=== PATIENT | female | born 1985 | race Caucasian/White ===

== ENCOUNTER → 2024-03-01 13:24 | Outpatient (REF) | payer BC, SELFPAY | LOC: HWWDC 13:24 | PROVIDERS: ATTENDING PHYSICIAN Nurse Practitioner Adult Health; FAMILY PHYSICIAN Internal Medicine | DX: Z12.31 Encounter for screening mammogram for malignant neoplasm of breast (principal); Z80.3 Family history of malignant neoplasm of breast | CPT/HCPCS: 77063; 77067 ==

== ENCOUNTER → 2024-03-15 09:55 | Outpatient (REF) | payer BC, SELFPAY | LOC: WDC 09:55 | PROVIDERS: ATTENDING PHYSICIAN Nurse Practitioner Adult Health; FAMILY PHYSICIAN Internal Medicine | DX: R92.8 Other abnormal and inconclusive findings on diagnostic imaging of breast (principal) | CPT/HCPCS: 76642 ==

== ENCOUNTER → 2024-08-30 14:46 | Outpatient (REF) | payer BC, SELFPAY | LOC: WDC 14:46 | PROVIDERS: ATTENDING PHYSICIAN Nurse Practitioner Adult Health | DX: R92.8 Other abnormal and inconclusive findings on diagnostic imaging of breast (principal) | CPT/HCPCS: 76642 ==

== ENCOUNTER 2025-01-25 00:12 | Emergency (ER) | payer OTHER, SELFPAY ==
[2025-01-25 00:23] VITALS: BP 135/94
[2025-01-25 00:39] VITALS: BMI 24.6
[2025-01-25 01:52] LABS: HCG, Urine Qualitative Screen Negative
[2025-01-25 01:55] LABS: Urine Character Clear (Clear)
[2025-01-25 02:05] LABS: Urine Squamous Cell 0-2 /LPF (Few)
[2025-01-25 02:06] LABS: Urine Red Blood Cell 0-2 /HPF (0-2); Urine White Cell 0-2 /HPF (0-5)
--- NOTE | 2025-01-25 02:21 | ED.GENMED ---
History of Present Illness
General
Chief Complaint: Female Review Trainer/Gu symptoms
Time Seen by Provider: 01/25/25 01:00
History of Present Illness
History of Present Illness:
39-year-old female without significant past medical history presenting for episode of hematuria. Patient reports a few weeks ago she saw her WRAPPING CLERK and was having some slight discharge which her WRAPPING CLERK thought may be secondary to a yeast infection. She
was recommended to do boric acid suppositories. She has been using them daily without issue, however prior to arrival she did a suppository and then when she went to the bathroom, noticed blood in her urine which concerned her. Denies significant
dysuria. Denies abdominal pain. She urinated again without any significant blood. Denies significant discharge. Denies additional acute medical complaints
Phy Exam
Physical Exam
Physical Exam:
General: Well-appearing, no clinical signs of dehydration, nontoxic and in no acute distress
HEENT: protecting airway
Neck: appears supple
CV: Normal heart rate, regular rhythm, no evidence of cyanosis
Resp: No accessory muscle use, no increased work of breathing
Abd: Soft and non-distended, no tenderness to palpation
Extremities: No deformities, no swelling
Neuro: alert, no focal neurologic deficit
: Scant vaginal discharge. No significant irritation to the vaginal wall. No retained foreign body. No discomfort
Rectal: deferred
Psych: Normal affect
Skin: Intact
Course
Orders/Labs/Results
Orders:
Orders
01/25/25 01:33
Test Result ONCE
01/25/25 01:39
, Urine Qualitative Screen [HCG, Urine Qualitative Screen] Urgent
Date Specimen was Collected: 01/25/25
Time Specimen was Collected: 01:36
Urinalysis Reflex To Culture Urgent
Date Specimen was Collected: 01/25/25
Time Specimen was Collected: 01:36
Urine Microscopic Reflex Cult Urgent
Vaginitis Panel by [facility] [S] Urgent
Trichomonas - Wet Prep Urgent
DAVID Source: Vagina
Specimen Description:
Date Specimen was Collected: 01/25/25
Time Specimen was Collected: 01:36
Abnormal Lab Results
01/25/25
01:39
Ur Occult Blood Reflex 4+ A
(Negative)
Vital Signs
Initial and Last Documented VS:
Initial Vital Signs
Temp Pulse Resp BP Pulse Ox
98.5 F 100 20 135/94 100
01/25/25 00:23 01/25/25 00:23 01/25/25 00:23 01/25/25 00:23 01/25/25 00:23
Last Documented Vital Signs
Temp Pulse Resp BP Pulse Ox
98.5 F 100 20 135/94 100
01/25/25 00:23 01/25/25 00:23 01/25/25 00:23 01/25/25 00:23 01/25/25 00:23
MDM/Problems Addressed
MDM/Problems Addressed:
39-year-old female presenting to the emergency department after episode of blood in her urine after using a vaginal suppository. Vital signs are normal.
On exam patient is resting comfortably, no acute distress. Patient is afebrile, nontoxic. No tenderness to abdomen without significant concern for severe intra-abdominal pathology or pathology. Suspect vaginal irritation and urethral
irritation from the suppository. Urinary tract infection is also a consideration. Will send urine specimen. Vaginal exam performed, relatively unremarkable. No signs of blood. Scant vaginal discharge without strong suspicion for persistent
candidal infection or BV. Swab sent.
02:20 - Urine shows blood, otherwise no acute abnormalities. Trichomonas is negative. At this time feel stable for discharge given that her urine is clearing. Advised outpatient gynecologic follow-up. Return precautions discussed and patient
verbalized understanding
*Pulse Oximetry
SaO2: 100
Oxygen Mode of Delivery: Room air
Patient hypoxic: no
*Critical Care Note
Total Time (30-74mins, 75-104mins- exclusive of procedures): Not Applicable
ED Attending Note
-
Portions of this chart may have been created with voice recognition software.� Occasional wrong word or��sound alike� substitutions may have occurred due to the inherent limitations of voice recognition software.
Discharge Plan
Departure
Prescriptions:
No Action
multivitamin Tablet
1 tab PO DAILY
Fibergummy
1 tab PO DAILY
Referrals:
Juan José Macedo I., DO [Family Provider, Internal Medicine]
Interventions
Interventions:
*Risk Screen - Suicide Last Done: 01/25/25 00:23
*General Assessment Last Done: 01/25/25 00:23
*Neglect/Abuse Screening Last Done: 01/25/25 00:23
*ED- Fall Risk Assessment Last Done: 01/25/25 00:23
*ED COVID-19 Vaccine History Last Done: 01/25/25 00:23
*ED Influenza Vaccine History Last Done: 01/25/25 00:23
ED-Female Genitourinary Assessment Last Done: 01/25/25 00:36
Discharge Date and Time
Print Language: [id number]
[2025-01-25 02:35] VITALS: BP 114/85
== END 2025-01-25 02:37 | disposition home or self-care (01) ==
LOC: EMR 00:12
PROVIDERS: EMERGENCY PHYSICIAN Student in an Organized Health Care Education/Training Program; FAMILY PHYSICIAN Internal Medicine
DX: R31.9 Hematuria, unspecified (principal)
CPT/HCPCS: 99283; 81003; 81015; 81025; 87210

== ENCOUNTER → 2025-03-06 08:57 | Outpatient (REF) | payer OTHER, SELFPAY | LOC: WDC 08:57 | PROVIDERS: ATTENDING PHYSICIAN Nurse Practitioner Adult Health; FAMILY PHYSICIAN Internal Medicine | DX: R92.8 Other abnormal and inconclusive findings on diagnostic imaging of breast (principal) | CPT/HCPCS: 76642 ==

== ENCOUNTER → 2025-04-04 12:51 | Outpatient (REF) | payer OTHER, SELFPAY | LOC: HWWDC 12:51 | PROVIDERS: ATTENDING PHYSICIAN Nurse Practitioner Adult Health; FAMILY PHYSICIAN Internal Medicine | DX: Z12.31 Encounter for screening mammogram for malignant neoplasm of breast (principal) | CPT/HCPCS: 77063; 77067 ==